=== PATIENT | male | born 1970 ===

== ENCOUNTER 2021-09-27 13:52 | Emergency (ER) | payer OTHER, SELFPAY ==
[2021-09-27 14:15] VITALS: BP 139/84; PULSE 87; RESP 18; TEMP 36.6; O2SAT 98; BMI 25.8
== END 2021-09-27 16:30 | disposition left against medical advice (07) ==
PROVIDERS: Emergency Provider Emergency Medicine
DX: U07.1 COVID-19 (principal)
CPT/HCPCS: 99281